=== PATIENT | female | born 1960 | race Caucasian/White ===

== ENCOUNTER 2017-01-11 17:01 | Observation (INO) | payer OTHER ==
[~2017-01-11 17:01] MED LIST: *UNABLE2; ACET500CAP; AMLODIPINE BESYLATE PO; AMOXIL500C PO; ARIXTRA SC; AT25 PO; AUG500 PO; BACDS PO; BACLOFEN20 MG PO; BUM1 PO; BUM2 PO; BYSTOLIC10 MG PO; C1 PO; C5 PO; CALCIUM PO; CALTRA600D PO; CALTRAT600 PO; CAT1 PO; CELEXA20 PO; COREG6 PO; COUMADIN10 MG PO; COUMADIN4 MG PO; COUMADIN6 MG PO; COUMADIN7.5 MG PO; COZ50 PO; CRESTOR20 MG PO; CYANO1000T PO; CYMBALTA; CYMBALTA60 PO; D 5000 PO; DULERA 200 MCG/13 GM INH; DURA100 TOP; DURA12 TOP; DURA25 TOP; DURA50 TOP; ELIQUIS 2.5 MG2.5 MG PO; ENDOCET1 TA3 PO; FERROUS SULF325 M1 PO; FLEX PO; FLORASTOR250 MG PO; FOLIC PO; HCTZ25B PO; HIPREX1 GM PO; HYDROCHLOROT25 MG PO; HYDROCODONE PO; HYZAAR 100/25 T1 TAB PO; JANTOVEN1 MG PO; K-TABS10 MEQ PO; KLONO1 PO; KLONO2 PO; KLOR-CON 1010 MEQ PO; L20 PO; LEVAQUIN750 MG PO; LIMBREL500 MG OR; LIOR10 PO; LOFIBRA160 MG PO; LOP100 PO; MAGOX4 PO; MEDROLPAK4 PO; MELATONIN5 M1 PO; METAMUCIL CAN7 OZ PO; METHENAM HIP1 GM OR; MICRO-K10 MEQ PO; MIRALAXPKT PO; MONODOX50 MG PO; MVI PO; Melatonin PO; NEUR100 PO; NEUR400 PO; NEUR600 PO; NEUR800 PO; NICODERM C14 MG/24 H TOP; NITROQUICK0.4 MG SL; NITROSTAT0.4 MG SL; NORV10 PO; NORV5 PO; OXYCOD PO; OXYCON10 PO; OXYCON20 PO; P10 PO; P20 PO; PCET PO; PEP20 PO; PERCOCET1 TA4 PO; PHENADOZ25 MG PO; PR25; PR25 PO; PRAVAC PO; PRAVACHOL40 MG PO; PRAVACHOL80 MG PO; PRILO PO; PRILOSEC40 MG PO; PRIM50B; PRIM50B PO; PROAIR HFA INH; PROAIRRESP INH; PROAMAT5 PO; PROBIOTIC PO; PROTONIX PO; PYR100B PO; QVAR80 MCG INH; REG PO; REG5 PO; RESTORIL30 MG PO; ROXICODONE15 MG PO; ROZEREM8 MG PO; SODBICAR10 PO; SODIUM BICARB PO; SPIRO25 PO; SPIRO50 PO; SUCR PO; SYMBICORT 160/41 INH INH; T PO; TRAZ100 PO; TRAZODONE; TRAZODONE150 MG; TRAZODONE150 MG PO; TRAZODONE300 MG PO; TRILIPIX135 MG PO; TRILIPIX45 MG PO; ULTRAM ER100 MG PO; ULTRAM50 PO; UREX1 GM PO; UROGESIC-BLU; UROGESIC-BLU OR; VALIUM; VANCOCIN HCL125 MG PO; VESICARE5 PO; VITAMIN B-12 PO; VITAMIN B-121000 MC1 PO; VITAMIN B-121000 MC1 SL; VITAMIN D31000 UNIT PO; VITD PO; WELCHOL 625 MG625 MG PO; XANAX1 MG PO; XANAX2 MG PO; XARELTO15 MG PO; XARELTO20 MG PO; ZANAFLEX; ZANAFLEX 4 MG TA4 MG PO; ZANAFLEX2 MG PO; ZANTAC 150 PO
[2017-05-10] MEDS ORDERED: COZ25 PO (10:57)
[2017-05-10] MEDS ORDERED: SILENOR3 MG PO (10:57)
[2017-05-10] MEDS ORDERED: CYMBALTA60 PO (10:58)
[2017-05-10] MEDS ORDERED: MEDROLPAK4 PO (10:59)
== END 2017-01-12 11:04 | disposition home or self-care (01) ==
LOC: ER 17:01 → SSU1 22:56
PROC: 0T25X0Z Change Drainage Device in Kidney, External Approach (ICD-10-PCS; principal; 2017-01-11)
DX: Z43.6 Encounter for attention to other artificial openings of urinary tract (principal); I10 Essential (primary) hypertension; G25.81 Restless legs syndrome; Z86.718 Personal history of other venous thrombosis and embolism
CPT/HCPCS: 50387; 50434; 50435; 96374; 99283; C1725; C1769; C1887; C1894; C2625; G0378; J1956; J2405; J2930; Q9967

== ENCOUNTER 2017-05-08 13:43 | Emergency (ER) | payer OTHER ==
[2017-05-08 15:14] LABS: BASOPHILS 0.6 %; BASOPHILS ABSOLUTE 0.03 10/3/uL (0.0-0.16); EOSINOPHILS 9.1 %; EOSINOPHILS ABSOLUTE 0.44 10/3/uL (0.0-0.53); HEMOGLOBIN 10.3 g/dL (12.0-16.0); LYMPHOCYTES 14.4 %; MEAN CORPUS HGB CONC 31.7 g/dL (32.0-36.0); MEAN CORPUSCULAR HEMOGLOB 29.9 pg (26.0-34.0); MEAN CORPUSCULAR VOLUME 94.2 fL (80-100); MEAN PLATELET VOLUME 10.7 fL (9.2-13.0); MONOCYTES 9.1 %; MONOCYTES ABSOLUTE 0.44 10/3/uL (0.21-1.20); NEUTROPHILS 66.8 %; NEUTROPHILS ABSOLUTE 3.25 10/3/uL (2.02-8.40); PLATELET COUNT 131 10/3/uL (150-400); RBC DISTRIBUTION WIDTH 16.2 % (12.0-16.0); RED CELL COUNT 3.45 10/6/uL (4.0-5.6); WHITE BLOOD CELLS 4.9 10/3/uL (4.5-10.5)
[2017-05-08 15:15] LABS: HEMATOCRIT 32.5 % (36.0-48.0); MANUAL DIFF NO %
[2017-05-08 15:32] LABS: CALCIUM, SERUM 8.5 MG/DL (8.5-10.4); CHEST PAIN PROFILE TAT 0 Hrs 22 Mins; CHLORIDE, SERUM 105 MMOL/L (96-112); CO2 (CARBON DIOXIDE) 26 MMOL/L (24-34); CREATININE 1.59 MG/DL (0.55-1.02); GFR AFRICAN AMERICAN 42 ML/MIN (>=60); GFR NON AFRICAN AMERICAN 36 ML/MIN (>=60); GLUCOSE, SERUM 88 MG/DL (60-99); POTASSIUM, SERUM 4.4 MMOL/L (3.5-5.3); SODIUM, SERUM 135 MMOL/L (135-148); TROPONIN I <0.02 NG/ML (<0.05)
[2017-05-08 15:33] LABS: BUN (BLOOD UREA NITROGEN) 29 MG/DL (6-23)
[2017-05-08 16:07] LABS: INTERNATIONAL NORMAL RATI 1.1 UNITS (-); PROTIME (NOT ORD) 14.2 SEC (12.0-14.5)
[2017-05-08 16:13] LABS: PARTIAL THROMBO TIME 36.2 SEC (22.5-37.2)
[2017-05-10] MEDS ORDERED: SILENOR3 MG PO (10:57)
[2017-05-10] MEDS ORDERED: COZ25 PO (10:57)
[2017-05-10] MEDS ORDERED: CYMBALTA60 PO (10:58)
[2017-05-10] MEDS ORDERED: MEDROLPAK4 PO (10:59)
== END 2017-05-08 19:55 | disposition home or self-care (01) ==
LOC: ER 13:43
PROVIDERS: Nurse Practitioner
DX: J44.1 Chronic obstructive pulmonary disease with (acute) exacerbation (principal); I13.2 Hypertensive heart and chronic kidney disease with heart failure and with stage 5 chronic kidney disease, or end stage renal disease; I50.9 Heart failure, unspecified; N18.9 Chronic kidney disease, unspecified; F17.200 Nicotine dependence, unspecified, uncomplicated; Z86.73 Personal history of transient ischemic attack (TIA), and cerebral infarction without residual deficits; Z88.8 Allergy status to other drugs, medicaments and biological substances; Z91.010 Allergy to peanuts; Z91.018 Allergy to other foods; Z79.899 Other long term (current) drug therapy
CPT/HCPCS: 71010; 80048; 83735; 83880; 84484; 85025; 85610; 85730; 93005; 94640; 96374; 99285; A9270-GY